=== PATIENT | male | born 1970 | race Caucasian/White ===

== ENCOUNTER → 2020-09-30 07:56 | Outpatient (CLI) | payer OTHER, SELFPAY ==
--- NOTE | 2020-09-30 | DI.RAD.S_ITS ---
PROCEDURE: FL KNEE INJECTION MR/CT RT INDICATIONS: Acute pain right knee COMPARISON: None. TECHNIQUE: The indications, alternatives, benefits, risks, and complications of the procedure were explained to the patient. Written informed consent was obtained and placed in the chart. The knee was examined fluoroscopically, and a site chosen for knee joint injection. The skin was prepped and draped in a sterile fashion, and 1% Lidocaine infiltrated from the skin down to the articular surface. A hypodermic needle was then introduced into the joint and iodinated contrast media was instilled to confirm the intra-articular needle tip placement. This was followed by approximately 50 mL dilute solution of a gadolinium containing MR contrast agent. The needle was removed and a bandage was applied. An Jeffy wrap was then applied around the knee joint to keep the contrast from collecting in the suprapatellar recess. The patient experienced no complications throughout the procedure and left the fluoroscopic suite in no apparent distress. FINDINGS: Single fluoroscopic spot image demonstrates intra-articular location to injected iodinated contrast. IMPRESSION: Successful fluoroscopically guided administration of dilute Gadolinium solution into the knee joint for MR arthrogram. Dictated by: Maribel Gomez MD, PhD on 09/30/2020 at 10:09 Approved by: Maribel Gomez MD, PhD on 09/30/2020 at 10:10
--- NOTE | 2020-09-30 | DI.MRI.S_ITS ---
PROCEDURE: MR KNEE RT W CON INDICATIONS: Acute pain right knee TECHNIQUE: After the administration of 50 mL of dilute intra-articular Gadolinium contrast, sagittal T1 spin echo with fat saturation and PD fast spin echo with fat saturation, coronal T1 spin echo with and without fat saturation, coronal T2 fast spin echo with fat saturation, axial PD fast spin echo with fat saturation through the knee. COMPARISON: [facility], RF, FL KNEE INJECTION MR/CT RT, 09/30/2020, 8:15. Outside Film, MR, MR KNEE RIGHT WITHOUT CONTRAST, 06/04/2020, 14:55. [facility], CR, XR KNEE ARTHRITIC SERIES RT, 09/20/2020, 11:12. FINDINGS: Image quality: Excellent. Menisci: Chronic abnormal appearance with truncation of the free edge of the body of the lateral meniscus is likely a secondary to prior injury or meniscectomy. There is a new radial tear involving the body of the medial meniscus. Small horizontal tears are seen involving the anterior horn and the posterior horn, also new. There is intrasubstance degeneration in the anterior horn. There is intrasubstance degeneration in the posterior horn of the medial meniscus. There is no barbie medial meniscal tear. The meniscal root ligaments appear intact. Cruciate ligaments: The anterior and posterior cruciate ligaments appear intact. Medial structures: The medial collateral ligament appears intact. The posterior oblique ligament, semimembranosus tendon insertions, oblique popliteal ligament, and meniscocapsular junction appear intact. Visualized portions of the pes anserinus tendons appear normal. No abnormal bursal fluid. Lateral structures: The lateral collateral ligament, long and short heads of the biceps femoris tendon appear intact. The popliteus tendon appears normal; the popliteofibular ligament appears intact. The posterosuperior and anteroinferior popliteomeniscal fascicles appear intact. The arcuate and fabellofibular ligaments appear intact around the lateral inferior geniculate artery. Iliotibial band appears normal. Anterior structures: The quadriceps and patellar tendons appear intact. Patellar alignment is normal. No femoral trochlear dysplasia or ventral trochlear prominence. No edema in the infrapatellar fat pad. Bone and cartilage: No bone marrow contusions or fractures. 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 Joint space: There is a moderate-sized Domínguez's cyst. Normal appearing synovial plicae are incidentally noted. No intra-articular bodies. IMPRESSION: 1. Truncation of the body of the lateral meniscus consistent with prior meniscal injury or meniscectomy. There is a small new radial tear involving the body and new horizontal tears of the anterior and the posterior horns of the lateral meniscus. 2. Intrasubstance degeneration of the posterior horn of the medial meniscus. 3. 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 4. A moderate-sized Domínguez cyst. Dictated by: Alicia Ford M.D. on 09/30/2020 at 9:46 Approved by: Alicia Ford M.D. on 09/30/2020 at 10:05
== END ==
PROVIDERS: Referring Provider Orthopaedic Surgery; Visit Provider Orthopaedic Surgery
DX: M25.561 Pain in right knee (principal); M71.21 Synovial cyst of popliteal space [Baker], right knee; S83.281A Other tear of lateral meniscus, current injury, right knee, initial encounter
CPT/HCPCS: 27369; 73722; 77002

== ENCOUNTER → 2023-05-13 10:08 | Outpatient (CLI) | payer OTHER, SELFPAY ==
--- NOTE | 2023-05-13 | DI.RAD.S_ITS ---
PROCEDURE: FL KNEE INJECTION MR/CT RT INDICATIONS: TEAR OF MENISCUS COMPARISON: [facility], MR, MR KNEE RT W CON, 05/13/2023, 11:22. [facility], [place], [place] KNEE INJECTION MR/CT RT, 09/30/2020, 8:15. TECHNIQUE: The indications, alternatives, benefits, risks, and complications of the procedure were explained to the patient. Written informed consent was obtained and placed in the chart. The knee was examined fluoroscopically, and a site chosen for knee joint injection. The skin was prepped and draped in a sterile fashion, and 1% Lidocaine infiltrated from the skin down to the articular surface. A hypodermic needle was then introduced into the joint and iodinated contrast media was instilled to confirm the intra-articular needle tip placement. This was followed by approximately 50 mL dilute solution of a gadolinium containing MR contrast agent. The needle was removed and a bandage was applied. An Jeffy wrap was then applied around the knee joint to keep the contrast from collecting in the suprapatellar recess. The patient experienced no complications throughout the procedure and left the fluoroscopic suite in no apparent distress. FINDINGS: Single fluoroscopic spot image demonstrates intra-articular location to injected iodinated contrast. IMPRESSION: Successful fluoroscopically guided administration of dilute Gadolinium solution into the knee joint for MR arthrogram. Dictated by: Donaldo Magaña M.D. on 05/13/2023 at 12:37 Approved by: Donaldo Magaña M.D. on 05/13/2023 at 12:38
--- NOTE | 2023-05-13 11:27 | DI.MRI.S_ITS ---
PROCEDURE: MR KNEE RT W CON INDICATIONS: TEAR OF MENISCUS TECHNIQUE: After the administration of 50 mL of dilute intra-articular Gadolinium contrast, sagittal T1 spin echo with fat saturation and PD fast spin echo with fat saturation, coronal T1 spin echo with and without fat saturation, coronal T2 fast spin echo with fat saturation, axial PD fast spin echo with fat saturation through the knee. COMPARISON: [facility], MR, MR KNEE RT W CON, 09/30/2020, 8:14. FINDINGS: Image quality: Excellent. Menisci: Patient is status post interval partial lateral meniscectomy with postsurgical changes. No area of abnormal contrast extension is seen in lateral meniscus remanent to suggest recurrent tear. The medial meniscus is intact. The meniscal root ligaments appear intact. Cruciate ligaments: The anterior cruciate ligament is thickened. The posterior cruciate ligament is intact. Medial structures: The medial collateral ligament appears intact. The posterior oblique ligament, semimembranosus tendon insertions, oblique popliteal ligament, and meniscocapsular junction appear intact. Visualized portions of the pes anserinus tendons appear normal. No abnormal bursal fluid. Lateral structures: The lateral collateral ligament, long and short heads of the biceps femoris tendon appear intact. The popliteus tendon appears normal; the popliteofibular ligament appears intact. Iliotibial band appears normal. Anterior structures: The quadriceps and patellar tendons appear intact. Patellar alignment is normal. No femoral trochlear dysplasia or ventral trochlear prominence. No edema in the infrapatellar fat pad. Bone and cartilage: No bone marrow contusions or fractures. Focal full-thickness cartilage defect involving weight-bearing portion of lateral femoral condyle is seen. The cartilage of the medial femoral tibial compartment and patellofemoral compartment is normal in thickness. Joint space: There is a 2.3 x 3.4 x 6.4 cm Domínguez's cyst. Normal appearing synovial plicae are incidentally noted. No intra-articular bodies. IMPRESSION: 1. Prior partial lateral meniscectomy with postsurgical changes. No evidence of recurrent tear is seen in lateral meniscus. The medial meniscus is intact. 2. Thickened anterior cruciate ligament suggestive of ACL sprain. No ACL rupture. The PCL is intact. 3. Focal full-thickness cartilage defect involving weight-bearing portion of lateral femoral condyle. No fracture or dislocation. No intra-articular loose bodies. 4. Domínguez's cyst as above. Dictated by: Stone Villafuerte M.D. on 05/13/2023 at 14:26 Approved by: Stone Villafuerte M.D. on 05/13/2023 at 14:29
== END ==
PROVIDERS: PCP Family Medicine; Referring Provider Orthopaedic Surgery; Visit Provider Orthopaedic Surgery
DX: S83.271D Complex tear of lateral meniscus, current injury, right knee, subsequent encounter (principal); M71.21 Synovial cyst of popliteal space [Baker], right knee
CPT/HCPCS: 27369; 73722; 77002